=== PATIENT | female | born 1995 | race Two or more races ===

== ENCOUNTER 2020-11-22 16:25 | Observation (INO) | payer MEDICAID, OTHER ==
[2020-11-22] MEDS ORDERED: CEPH-322 PO (17:40)
[2020-11-22] MEDS ORDERED: PREN1TAB71 OR (17:40)
== END 2020-11-22 18:17 | disposition home or self-care (01) ==
LOC: LDRP 16:25
PROVIDERS: ADMIT Obstetrics & Gynecology; ATTEND Obstetrics & Gynecology
DX: O98.512 Other viral diseases complicating pregnancy, second trimester (principal); U07.1 COVID-19; O21.2 Late vomiting of pregnancy; O26.892 Other specified pregnancy related conditions, second trimester; R19.7 Diarrhea, unspecified; O62.9 Abnormality of forces of labor, unspecified; Z3A.25 25 weeks gestation of pregnancy
CPT/HCPCS: 36415; 59025; 81002; 87426; G0378

== ENCOUNTER 2023-06-10 15:45 | Emergency (ER) | payer MEDICAID, OTHER ==
[~2023-06-10] VITALS: Ht 175.3 cm; Wt 91.3 kg
[~2023-06-10 15:45] MED LIST: CEPH250C PO; PREN1TAB71 OR
[2023-06-10 15:52] VITALS: BP 124/84; TEMP 98.1
[2023-06-10 16:21] VITALS: PULSE 117; RESP 18; O2SAT 100
[2023-06-10] MEDS: KETOROLAC TROMETH 30 MG/ML 1ML VIAL IM ONE (16:45)
[2023-06-10] MEDS: DexAMETHasone SOD PHOS 10MG/1ML VIAL INJ IM ONE (16:45)
[2023-06-10] MEDS: PROMETHAZINE W/CODEINE 5 ML ORAL SYRUP PO ONE (16:46)
[2023-06-10] MEDS ORDERED: AUG875T PO (17:09)
[2023-06-10] MEDS ORDERED: BENZ100C97 PO (17:09)
[2023-06-10] MEDS ORDERED: PROM1SOL4 PO (17:09)
== END 2023-06-10 17:26 | disposition home or self-care (01) ==
LOC: ER 15:45
DX: B34.9 Viral infection, unspecified (principal)
CPT/HCPCS: 96372; 99284; J1100; J1885

== ENCOUNTER 2023-06-17 11:32 | Emergency (ER) | payer OTHER ==
[~2023-06-17] VITALS: Ht 175.3 cm; Wt 90.0 kg
[~2023-06-17 11:32] MED LIST changes: +AUG875T PO; +BENZ100C97 PO; +PROM1SOL4 PO
[2023-06-17 11:36] VITALS: TEMP 98.6
[2023-06-17 11:54] VITALS: BP 122/80; PULSE 97; RESP 18; O2SAT 99
[2023-06-17] MEDS: cefTRIAXone SOD 500 MG VL IM ONE (15:25)
[2023-06-17] MEDS: KETOROLAC TROMETH 30 MG/ML 1ML VIAL IM ONE (17:05)
[2023-06-17] MEDS: diphenhdrAMINE HCL 25 MG CAP PO ONE (17:06)
[2023-06-17] MEDS: PROCHLORPERAZINE EDISYLATE 5 MG/ML 2ML VIAL IM ONE (17:06)
[2023-06-17] MEDS ORDERED: PSEU120T2 PO (17:44)
[2023-06-17] MEDS ORDERED: FLUT1SPR5 (17:44)
[2023-06-17] MEDS ORDERED: IBUP1TAB5 PO (17:44)
== END 2023-06-17 17:50 | disposition home or self-care (01) ==
LOC: ER 11:32
DX: J32.9 Chronic sinusitis, unspecified (principal)
CPT/HCPCS: 70450; 71045; 96372; 99285; J0696; J0780; J1885